=== PATIENT | male | born 1955 | race Caucasian/White ===

== ENCOUNTER 2022-04-24 19:50 | Emergency (ER) | payer MEDICARE | END 2022-04-24 21:28 | disposition home or self-care (01) | LOC: ERS 19:50 | DX: I87.8 Other specified disorders of veins (principal); I10 Essential (primary) hypertension; F17.210 Nicotine dependence, cigarettes, uncomplicated | CPT/HCPCS: 99283 ==

== ENCOUNTER 2022-05-28 16:21 | Inpatient (IN) | payer MEDICARE, SELFPAY ==
[2022-05-28 16:59] LABS: #Eosinphils 0.3 thou/uL (0.0-0.7); #Lymphocytes 1.5 thou/uL (1.20-3.40); #Monocytes 0.4 thou/uL (0.11-0.59); #Neutrophils 7.3 thou/uL (1.40-6.50); %Basophils 0.3 % (0.0-1.0); %Eosinophils 2.7 % (0.0-10.0); %Lymphocytes 15.4 % (21.0-51.0); %Monocytes 4.6 % (0.0-10.0); %Neutrophils 77.1 % (42.0-75.0); Hemoglobin 12.8 g/dL (14.0-18.0); Mean Corpuscular HGB CONC 32.5 g/dL (32.0-36.0); Mean Corpuscular Volume 95.4 fL (78.0-98.0); Mean Platelet Volume 7.4 fL (7.4-10.4); Platelet Count 239 thou/uL (130-400); RBC Distribution Width 13.3 % (11.5-14.5); Red Blood Cell (RBC) Count 4.12 mill/uL (4.70-6.10); White Blood Cell (WBC) Count 9.4 thou/uL (4.8-10.8)
[2022-05-28] MEDS ORDERED: hydrALAZINE 20 MG/ML VIAL ONE ×2 (17:01→17:50)
[2022-05-28 17:21] LABS: ALT (SGPT) Less than 7 U/L (8-55); AST (SGOT) 10 U/L (5-34); Albumin 3.9 g/dL (3.4-4.8); Alkaline Phosphatase 118 U/L (40-110); Anion Gap 14 mmol/L (10-20); BUN (Urea Nitrogen) 21 mg/dL (8.4-25.7); Bilirubin, Total 0.3 mg/dL (0.2-1.2); Calc. Creatinine Clearance 0 mL/min (70-130); Calcium 8.9 mg/dL (7.8-10.44); Carbon Dioxide 27 mmol/L (23-31); Chloride 104 mmol/L (98-107); Estimated GFR 95; Globulin 2.9 g/dL (2.4-3.5); Glucose 88 mg/dL (80-115); Potassium 3.9 mmol/L (3.5-5.1); Protein, Total 6.8 g/dL (5.8-8.1); Sodium 141 mmol/L (136-145)
[2022-05-28] MEDS ORDERED: Nitroglycerin 2% Ointment 1 INCH/1 GM Packet ONE (17:50)
[2022-05-28] MEDS ORDERED: Enalaprilat Dihydrate 1.25 MG/ML VIAL SLOW IVP SCH ×2 (18:15→18:45)
[2022-05-28] MEDS ORDERED: Carvedilol 25 MG TAB PO SCH ×2 (18:15→18:45)
[2022-05-28] MEDS ORDERED: Ondansetron ODT 4 MG TAB PO PRN (18:16)
[2022-05-28] MEDS ORDERED: hydrALAZINE 20 MG/ML VIAL SLOW IVP PRN (18:21)
[2022-05-28] MEDS ORDERED: Nicotine 14 MG PATCH TD SCH (18:30)
[2022-05-28] MEDS ORDERED: Clindamycin 150 MG CAP PO SCH (19:00)
[2022-05-28] MEDS ORDERED: niCARdipine 25 MG in Sodium Chloride 0.9% 250 ML 250 ML IVPB SCH (19:30)
[2022-05-28] MEDS ORDERED: Morphine 4 MG/ML VIAL ONE (20:15)
[2022-05-28 21:23] VITALS: BMI 22.6
[2022-05-28] MEDS: Famotidine 20 MG TAB PO SCH (21:41)
[2022-05-29] MEDS: Acetaminophen 325 MG TAB PO PRN ×3 (02:13→21:16)
[2022-05-29 04:04] LABS: #Eosinphils 0.2 thou/uL (0.0-0.7); #Lymphocytes 1.3 thou/uL (1.20-3.40); #Monocytes 0.6 thou/uL (0.11-0.59); #Neutrophils 10.4 thou/uL (1.40-6.50); %Basophils 0.1 % (0.0-1.0); %Lymphocytes 10.4 % (21.0-51.0); %Neutrophils 82.5 % (42.0-75.0); Hemoglobin 13.4 g/dL (14.0-18.0); Mean Corpuscular HGB CONC 33.1 g/dL (32.0-36.0); Mean Corpuscular Hemoglobin 31.6 pg (27.0-31.0); Mean Corpuscular Volume 95.4 fL (78.0-98.0); Mean Platelet Volume 8.1 fL (7.4-10.4); Platelet Count 253 thou/uL (130-400); RBC Distribution Width 13.4 % (11.5-14.5); Red Blood Cell (RBC) Count 4.23 mill/uL (4.70-6.10); White Blood Cell (WBC) Count 12.6 thou/uL (4.8-10.8)
[2022-05-29 04:21] LABS: Anion Gap 17 mmol/L (10-20); BUN (Urea Nitrogen) 19 mg/dL (8.4-25.7); Calc. Creatinine Clearance 100 mL/min (70-130); Calcium 9.1 mg/dL (7.8-10.44); Carbon Dioxide 24 mmol/L (23-31); Chloride 104 mmol/L (98-107); Estimated GFR 95; Glucose 92 mg/dL (80-115); Potassium 3.9 mmol/L (3.5-5.1); Sodium 141 mmol/L (136-145)
[2022-05-29] MEDS ORDERED: Clindamycin 150 MG CAP PO SCH (06:00)
[2022-05-29] MEDS: Famotidine 20 MG TAB PO SCH ×2 (08:21→21:16)
[2022-05-29] MEDS ORDERED: cloNIDine 0.1 MG TAB PO PRN (08:56)
[2022-05-29] MEDS ORDERED: Nicotine 14 MG PATCH TD PRN ×2 (08:57→08:59)
[2022-05-29] MEDS ORDERED: Carvedilol 6.25 MG TAB PO SCH (09:00)
[2022-05-29] MEDS ORDERED: NIFEdipine XL 30 MG TAB PO SCH (09:00)
[2022-05-29] MEDS: cefTRIAXone\\ROCEPHIN 2 GM in Sodium Chloride 0.9% 100 ML IVPB SCH (09:44)
[2022-05-29] MEDS: Saccharomyces boulardii 250 MG CAP PO SCH (09:44)
[2022-05-29 10:30] LABS: Amphetamine Not Detected (NotDetected); Barbiturates Screen Not Detected (NotDetected); Benzodiazepine Screen Not Detected (NotDetected); Cocaine Metabolite Screen Not Detected (NotDetected); Methadone Not Detected (NotDetected); Methamphetamine Not Detected (NotDetected); Opiate Screen Detected (NotDetected); Oxycodone Screen Not Detected (NotDetected); Phencyclidine (PCP) Not Detected (NotDetected); THC/Cannabinoid Screen Detected (NotDetected); Tricyclic Screen Not Detected (NotDetected)
[2022-05-29] MEDS ORDERED: Pregabalin 75 MG CAP PO SCH (12:30)
[2022-05-29] MEDS ORDERED: Doxycycline 100 MG CAP PO SCH (14:30)
[2022-05-29] MEDS: Carvedilol 6.25 MG TAB PO SCH (16:21)
[2022-05-29] MEDS: Pregabalin 75 MG CAP PO SCH (21:16)
[2022-05-29] MEDS: Doxycycline 100 MG CAP PO SCH (21:16)
[2022-05-29] MEDS: Heparin 5,000 UNITS/ML VIAL SC SCH (21:17)
[2022-05-30 05:54] LABS: #Eosinphils 0.2 thou/uL (0.0-0.7); #Lymphocytes 1.3 thou/uL (1.20-3.40); #Monocytes 0.7 thou/uL (0.11-0.59); #Neutrophils 7.9 thou/uL (1.40-6.50); %Basophils 0.3 % (0.0-1.0); %Eosinophils 1.8 % (0.0-10.0); %Lymphocytes 13.2 % (21.0-51.0); %Monocytes 6.8 % (0.0-10.0); Hemoglobin 13.9 g/dL (14.0-18.0); Mean Corpuscular HGB CONC 32.3 g/dL (32.0-36.0); Mean Corpuscular Volume 96.1 fL (78.0-98.0); Mean Platelet Volume 8.1 fL (7.4-10.4); Platelet Count 260 thou/uL (130-400); RBC Distribution Width 13.1 % (11.5-14.5); Red Blood Cell (RBC) Count 4.49 mill/uL (4.70-6.10); White Blood Cell (WBC) Count 10.1 thou/uL (4.8-10.8)
[2022-05-30 06:04] LABS: Anion Gap 14 mmol/L (10-20); BUN (Urea Nitrogen) 20 mg/dL (8.4-25.7); Calc. Creatinine Clearance 112 mL/min (70-130); Calcium 9.6 mg/dL (7.8-10.44); Carbon Dioxide 24 mmol/L (23-31); Chloride 106 mmol/L (98-107); Estimated GFR 98; Glucose 96 mg/dL (80-115); Potassium 3.8 mmol/L (3.5-5.1); Sodium 140 mmol/L (136-145)
[2022-05-30] MEDS ORDERED: hydrALAZINE 20 MG/ML VIAL SLOW IVP PRN (08:07)
[2022-05-30] MEDS: Famotidine 20 MG TAB PO SCH ×2 (08:12→21:55)
[2022-05-30] MEDS: Saccharomyces boulardii 250 MG CAP PO SCH (08:12)
[2022-05-30] MEDS: Heparin 5,000 UNITS/ML VIAL SC SCH ×2 (08:12→21:55)
[2022-05-30] MEDS: cefTRIAXone\\ROCEPHIN 2 GM in Sodium Chloride 0.9% 100 ML IVPB SCH (08:12)
[2022-05-30] MEDS: Doxycycline 100 MG CAP PO SCH ×2 (08:12→21:54)
[2022-05-30] MEDS: Pregabalin 75 MG CAP PO SCH ×2 (08:13→21:54)
[2022-05-30] MEDS ORDERED: Carvedilol 25 MG TAB PO SCH (08:15)
[2022-05-30] MEDS: NIFEdipine XL 60 MG TAB PO SCH (08:22)
[2022-05-30] MEDS: Carvedilol 6.25 MG TAB PO SCH (08:23)
[2022-05-30] MEDS: cloNIDine 0.1 MG TAB PO PRN (10:13)
[2022-05-30] MEDS: Carvedilol 25 MG TAB PO SCH (17:40)
[2022-05-30] MEDS: Acetaminophen 325 MG TAB PO PRN (22:07)
[2022-05-31 06:38] LABS: #Basophils 0.1 thou/uL (0.0-0.2); #Eosinphils 0.1 thou/uL (0.0-0.7); #Lymphocytes 1.5 thou/uL (1.20-3.40); #Monocytes 0.6 thou/uL (0.11-0.59); #Neutrophils 7.6 thou/uL (1.40-6.50); %Basophils 0.6 % (0.0-1.0); %Eosinophils 1.5 % (0.0-10.0); %Lymphocytes 15.3 % (21.0-51.0); %Monocytes 5.9 % (0.0-10.0); %Neutrophils 76.6 % (42.0-75.0); Hemoglobin 13.5 g/dL (14.0-18.0); Mean Corpuscular HGB CONC 33.1 g/dL (32.0-36.0); Mean Corpuscular Hemoglobin 31.7 pg (27.0-31.0); Mean Corpuscular Volume 95.8 fL (78.0-98.0); Mean Platelet Volume 8.4 fL (7.4-10.4); Platelet Count 240 thou/uL (130-400); RBC Distribution Width 13.3 % (11.5-14.5); Red Blood Cell (RBC) Count 4.25 mill/uL (4.70-6.10); White Blood Cell (WBC) Count 9.9 thou/uL (4.8-10.8)
[2022-05-31] MEDS: cloNIDine 0.1 MG TAB PO PRN (06:50)
[2022-05-31 07:01] LABS: Anion Gap 14 mmol/L (10-20); BUN (Urea Nitrogen) 20 mg/dL (8.4-25.7); Calc. Creatinine Clearance 113 mL/min (70-130); Calcium 9.6 mg/dL (7.8-10.44); Carbon Dioxide 23 mmol/L (23-31); Chloride 105 mmol/L (98-107); Estimated GFR 99; Glucose 107 mg/dL (80-115); Potassium 3.4 mmol/L (3.5-5.1); Sodium 139 mmol/L (136-145)
[2022-05-31] MEDS ORDERED: Potassium Chloride 20 MEQ TAB PO SCH ×2 (08:15→16:15)
[2022-05-31] MEDS: NIFEdipine XL 60 MG TAB PO SCH (08:23)
[2022-05-31] MEDS: Saccharomyces boulardii 250 MG CAP PO SCH (08:24)
[2022-05-31] MEDS: Pregabalin 75 MG CAP PO SCH ×2 (08:24→20:29)
[2022-05-31] MEDS: Doxycycline 100 MG CAP PO SCH ×2 (08:24→20:29)
[2022-05-31] MEDS: cefTRIAXone\\ROCEPHIN 2 GM in Sodium Chloride 0.9% 100 ML IVPB SCH (08:25)
[2022-05-31] MEDS: Famotidine 20 MG TAB PO SCH ×2 (08:25→20:29)
[2022-05-31] MEDS: Carvedilol 25 MG TAB PO SCH ×2 (08:25→16:19)
[2022-05-31] MEDS: Heparin 5,000 UNITS/ML VIAL SC SCH ×2 (08:25→20:30)
[2022-05-31] MEDS: Acetaminophen 325 MG TAB PO PRN ×2 (13:32→16:32)
[2022-05-31] MEDS ORDERED: Iopamidol-370 76% 500 ML 1 ML ONE (14:13)
[2022-05-31] MEDS ORDERED: Electrolyte Replacement Protocol 1 EACH FS SCH (16:00)
[2022-05-31] MEDS ORDERED: Aspirin 325 mg Enteric Coated Tablet PO SCH (16:00)
[2022-05-31] MEDS ORDERED: Electrolyte Replacement Protocol FS PRN (16:15)
[2022-05-31] MEDS: hydrALAZINE 25 MG TAB PO SCH ×2 (16:20→20:30)
[2022-06-01] MEDS: cloNIDine 0.1 MG TAB PO PRN (06:10)
[2022-06-01 06:44] LABS: #Basophils 0.1 thou/uL (0.0-0.2); #Eosinphils 0.2 thou/uL (0.0-0.7); #Lymphocytes 1.8 thou/uL (1.20-3.40); #Monocytes 0.6 thou/uL (0.11-0.59); #Neutrophils 7.3 thou/uL (1.40-6.50); %Basophils 0.5 % (0.0-1.0); %Eosinophils 1.7 % (0.0-10.0); %Lymphocytes 18.2 % (21.0-51.0); %Monocytes 5.8 % (0.0-10.0); %Neutrophils 73.8 % (42.0-75.0); Hemoglobin 13.4 g/dL (14.0-18.0); Mean Corpuscular HGB CONC 32.9 g/dL (32.0-36.0); Mean Corpuscular Hemoglobin 31.6 pg (27.0-31.0); Mean Corpuscular Volume 96.1 fL (78.0-98.0); Mean Platelet Volume 8.5 fL (7.4-10.4); Platelet Count 242 thou/uL (130-400); RBC Distribution Width 13.3 % (11.5-14.5); Red Blood Cell (RBC) Count 4.25 mill/uL (4.70-6.10); White Blood Cell (WBC) Count 9.9 thou/uL (4.8-10.8)
[2022-06-01 07:06] LABS: Anion Gap 17 mmol/L (10-20); BUN (Urea Nitrogen) 23 mg/dL (8.4-25.7); Calc. Creatinine Clearance 102 mL/min (70-130); Calcium 9.4 mg/dL (7.8-10.44); Carbon Dioxide 20 mmol/L (23-31); Chloride 106 mmol/L (98-107); Estimated GFR 96; Glucose 101 mg/dL (80-115); Magnesium 1.8 mg/dL (1.6-2.6); Potassium 4.2 mmol/L (3.5-5.1); Sodium 139 mmol/L (136-145)
[2022-06-01] MEDS ORDERED: Magnesium 2 GM/50 ML(in water) 2 GM in Premix Bag 1 BAG IVPB SCH (07:30)
[2022-06-01] MEDS: cefTRIAXone\\ROCEPHIN 2 GM in Sodium Chloride 0.9% 100 ML IVPB SCH (08:23)
[2022-06-01] MEDS: hydrALAZINE 25 MG TAB PO SCH ×2 (08:23→14:00)
[2022-06-01] MEDS: NIFEdipine XL 60 MG TAB PO SCH (08:24)
[2022-06-01] MEDS: Aspirin 325 mg Enteric Coated Tablet PO SCH (08:24)
[2022-06-01] MEDS: Acetaminophen 325 MG TAB PO PRN ×2 (08:24→20:10)
[2022-06-01] MEDS: Pregabalin 75 MG CAP PO SCH ×2 (08:25→20:07)
[2022-06-01] MEDS: Famotidine 20 MG TAB PO SCH ×2 (08:25→20:07)
[2022-06-01] MEDS: Saccharomyces boulardii 250 MG CAP PO SCH (08:25)
[2022-06-01] MEDS: Carvedilol 25 MG TAB PO SCH ×2 (08:25→16:35)
[2022-06-01] MEDS: Heparin 5,000 UNITS/ML VIAL SC SCH ×2 (08:26→20:13)
[2022-06-01] MEDS: Doxycycline 100 MG CAP PO SCH ×2 (08:39→20:07)
[2022-06-01] MEDS ORDERED: NIFEdipine XL 90 MG TAB PO SCH (09:00)
[2022-06-01] MEDS ORDERED: hydrALAZINE 25 MG TAB PO SCH (21:00)
[2022-06-02] MEDS: cloNIDine 0.1 MG TAB PO PRN (05:10)
[2022-06-02] MEDS: Doxycycline 100 MG CAP PO SCH (08:06)
[2022-06-02] MEDS: cefTRIAXone\\ROCEPHIN 2 GM in Sodium Chloride 0.9% 100 ML IVPB SCH (08:06)
[2022-06-02] MEDS: Heparin 5,000 UNITS/ML VIAL SC SCH (08:06)
[2022-06-02] MEDS: Famotidine 20 MG TAB PO SCH (08:06)
[2022-06-02] MEDS: Aspirin 325 mg Enteric Coated Tablet PO SCH (08:06)
[2022-06-02] MEDS: Saccharomyces boulardii 250 MG CAP PO SCH (08:06)
[2022-06-02] MEDS: Carvedilol 25 MG TAB PO SCH (08:07)
[2022-06-02] MEDS: Pregabalin 75 MG CAP PO SCH (08:07)
[2022-06-02 08:24] VITALS: BP 158/98; TEMP 97.7
[2022-06-02] MEDS ORDERED: NIFEdipine XL 60 MG TAB PO SCH (09:00)
[2022-06-02] MEDS: Acetaminophen 325 MG TAB PO PRN (14:43)
== END 2022-06-02 16:13 | disposition home health service (06) | DRG 603 ==
LOC: ERS 16:21 → CCU 20:26 → T4-A 05-29 12:23
PROVIDERS: ADMIT Internal Medicine; ATTEND Internal Medicine
DX: L03.115 Cellulitis of right lower limb (principal); I16.1 Hypertensive emergency; I16.0 Hypertensive urgency; Z20.822 Contact with and (suspected) exposure to COVID-19; L03.116 Cellulitis of left lower limb; F17.210 Nicotine dependence, cigarettes, uncomplicated; F12.20 Cannabis dependence, uncomplicated; H54.40 Blindness, one eye, unspecified eye; I73.9 Peripheral vascular disease, unspecified; D53.9 Nutritional anemia, unspecified; J44.9 Chronic obstructive pulmonary disease, unspecified; E87.6 Hypokalemia; E83.42 Hypomagnesemia; Z91.14 Patient's other noncompliance with medication regimen; Z91.19 Patient's noncompliance with other medical treatment and regimen
CPT/HCPCS: 36415; 36416; 71045; 75635; 80048; 80053; 80306; 83735; 83880; 84484; 84550; 85025; 87040; 93005; 93923; 96374; 96375; 96376; 97139; J0360; J0696; J1644; J2270; J3475; J3490; J7050; Q9967; U0003; U0005

== ENCOUNTER 2022-07-04 00:56 | Emergency (ER) | payer MEDICARE ==
[2022-07-04] MEDS ORDERED: HYDROcodone/Acetaminophen 5/325 mg Tablet ONE (03:17)
== END 2022-07-04 06:22 ==
LOC: ERS 01:03
DX: S82.145A Nondisplaced bicondylar fracture of left tibia, initial encounter for closed fracture (principal); I10 Essential (primary) hypertension; F17.210 Nicotine dependence, cigarettes, uncomplicated; W18.39XA Other fall on same level, initial encounter
CPT/HCPCS: 72170

== ENCOUNTER 2022-10-09 06:17 | Emergency (ER) | payer MEDICARE ==
[2022-10-09] MEDS ORDERED: Mag-Al 1200 mg/1200 mg/30 ML UDCUP ONE (06:31)
[2022-10-09] MEDS ORDERED: Ondansetron PF 4 MG/2 ML Vial ONE (06:31)
[2022-10-09] MEDS ORDERED: Lidocaine Viscous Sol 2% 15 ml UD Cup ONE (06:32)
[2022-10-09 06:45] LABS: #Basophils 0.1 thou/uL (0.0-0.2); #Eosinphils 0.2 thou/uL (0.0-0.7)
[2022-10-09 06:52] LABS: #Lymphocytes 2.1 thou/uL (1.20-3.40); #Monocytes 0.4 thou/uL (0.11-0.59); #Neutrophils 5.9 thou/uL (1.40-6.50); %Lymphocytes 24.4 % (21.0-51.0); %Neutrophils 67.7 % (42.0-75.0); Hemoglobin 11.2 g/dL (14.0-18.0); Mean Corpuscular HGB CONC 33.2 g/dL (32.0-36.0); Mean Corpuscular Hemoglobin 31.6 pg (27.0-31.0); Mean Corpuscular Volume 95.3 fl (78.0-98.0); Mean Platelet Volume 8.1 fL (7.4-10.4); Platelet Count 351 10x3/uL (130-400); RBC Distribution Width 15.3 % (11.5-14.5); Red Blood Cell (RBC) Count 3.53 mill/uL (4.70-6.10); White Blood Cell (WBC) Count 8.6 10x3/uL (4.8-10.8)
[2022-10-09 07:06] LABS: ALT (SGPT) 8 U/L (8-55); AST (SGOT) 14 U/L (5-34); Alkaline Phosphatase 103 U/L (40-110); Anion Gap 14 mmol/L (10-20); BUN (Urea Nitrogen) 21 mg/dL (8.4-25.7); Bilirubin, Total 0.4 mg/dL (0.2-1.2); Calc. Creatinine Clearance 0 mL/min (70-130); Calcium 9.6 mg/dL (7.8-10.44); Carbon Dioxide 20 mmol/L (23-31); Chloride 111 mmol/L (98-107); Estimated GFR 86; Globulin 2.8 g/dL (2.4-3.5); Glucose 90 mg/dL (80-115); Lipase 12 U/L (8-78); Potassium 3.2 mmol/L (3.5-5.1); Protein, Total 6.8 g/dL (5.8-8.1); Sodium 142 mmol/L (136-145)
[2022-10-09] MEDS ORDERED: HYDROcodone/Acetaminophen 10/325 mg Tablet ONE (09:27)
[2022-10-09 10:01] LABS: Bilirubin Negative (Negative); Blood, Urine Negative (Negative); Clarity Clear (Clear); Glucose, Urine (Dipstick) Normal (Negative); Ketone, Urine Negative (Negative); Leukocyte Negative Leu/uL (Negative); Nitrite Negative (Negative); Protein, Urine (Dipstick) 20 mg/dL (Neg-Trace); Specific Gravity, Urine 1.035 (1.002-1.036); Urobilinogen Normal mg/dL (Less than 2)
[2022-10-09] MEDS ORDERED: Iopamidol-370 76% 500 ML 1 ML ONE (10:19)
== END 2022-10-09 10:06 | disposition home or self-care (01) ==
LOC: ERS 06:17
DX: R11.0 Nausea (principal); R19.7 Diarrhea, unspecified; I10 Essential (primary) hypertension; F17.210 Nicotine dependence, cigarettes, uncomplicated
CPT/HCPCS: 74177; 80053; 81003; 83690; 85025; 87086; 93005; 96361; 96374; J2405

== ENCOUNTER 2022-10-13 14:38 | Emergency (ER) | payer MEDICARE ==
[~2022-10-13 14:38] MED LIST: Iopamidol-370 76% 500 ML 1 ML ONE
[2022-10-13] MEDS ORDERED: Ondansetron PF 4 MG/2 ML Vial ONE (15:40)
[2022-10-13 16:07] LABS: Bilirubin Negative (Negative); Blood, Urine Negative (Negative); Glucose, Urine (Dipstick) Negative (Negative); Ketone, Urine Trace mg/dL (Negative); Leukocyte Negative (Negative); Nitrite Negative (Negative); Protein, Urine (Dipstick) Trace mg/dL (Neg-Trace); Urobilinogen 0.2 mg/dL (Less than 2)
[2022-10-13 16:16] LABS: #Eosinphils 0.2 thou/uL (0.0-0.7); #Lymphocytes 1.7 thou/uL (1.20-3.40); #Monocytes 0.4 thou/uL (0.11-0.59); #Neutrophils 5.4 thou/uL (1.40-6.50); %Basophils 0.6 % (0.0-1.0); %Eosinophils 2.5 % (0.0-10.0); %Monocytes 4.9 % (0.0-10.0); Hemoglobin 11.6 g/dL (14.0-18.0); Mean Corpuscular HGB CONC 33.5 g/dL (32.0-36.0); Mean Corpuscular Hemoglobin 32.2 pg (27.0-31.0); Mean Corpuscular Volume 95.9 fl (78.0-98.0); Mean Platelet Volume 8.9 fL (7.4-10.4); Platelet Count 315 10x3/uL (130-400); RBC Distribution Width 15.4 % (11.5-14.5); Red Blood Cell (RBC) Count 3.61 mill/uL (4.70-6.10); White Blood Cell (WBC) Count 7.7 10x3/uL (4.8-10.8)
[2022-10-13 16:24] LABS: Bacteria/HPF None Seen HPF (None Seen); RBC/HPF 0-3 HPF (0-3); Squamous Epithelial 0-3 HPF (0-3); WBC/HPF 0-3 HPF (0-3)
[2022-10-13 16:26] LABS: Clarity Clear (Clear); Specific Gravity, Urine 1.024 (1.002-1.036)
[2022-10-13 16:45] LABS: ALT (SGPT) Less than 7 U/L (8-55); AST (SGOT) 14 U/L (5-34); Albumin 3.9 g/dL (3.4-4.8); Alkaline Phosphatase 94 U/L (40-110); Anion Gap 13 mmol/L (10-20); BUN (Urea Nitrogen) 17 mg/dL (8.4-25.7); Bilirubin, Total 0.4 mg/dL (0.2-1.2); Calc. Creatinine Clearance 0 mL/min (70-130); Calcium 9.8 mg/dL (7.8-10.44); Carbon Dioxide 26 mmol/L (23-31); Chloride 106 mmol/L (98-107); Estimated GFR 82; Globulin 2.8 g/dL (2.4-3.5); Glucose 83 mg/dL (80-115); Lipase 14 U/L (8-78); Protein, Total 6.7 g/dL (5.8-8.1); Sodium 142 mmol/L (136-145)
[2022-10-13] MEDS ORDERED: Potassium Chloride 20 MEQ TAB ONE (18:40)
[2022-10-13] MEDS ORDERED: Acetaminophen 500 MG TAB ONE (22:24)
[2022-10-13] MEDS ORDERED: Lisinopril 10 MG TAB ONE (22:57)
[2022-10-13] MEDS ORDERED: Amlodipine 5 MG TAB ONE (22:57)
== END 2022-10-14 01:53 ==
LOC: ERS 14:38
DX: R11.2 Nausea with vomiting, unspecified (principal); R53.1 Weakness; I10 Essential (primary) hypertension; F17.210 Nicotine dependence, cigarettes, uncomplicated; Z79.899 Other long term (current) drug therapy
CPT/HCPCS: 36415; 74177; 76705; 80053; 81003; 83690; 85025; 96374; J2405; Q9967

== ENCOUNTER 2023-03-18 13:09 | Emergency (ER) | payer MEDICARE, SELFPAY ==
[2023-03-18] MEDS ORDERED: Morphine 4 MG/ML VIAL ONE (13:53)
[2023-03-18 16:49] LABS: #Basophils 0.1 thou/uL (0.0-0.2); #Eosinphils 0.1 thou/uL (0.0-0.7); #Lymphocytes 1.2 thou/uL (1.20-3.40); #Monocytes 0.3 thou/uL (0.11-0.59); #Neutrophils 5.1 thou/uL (1.40-6.50); %Basophils 1.1 % (0.0-1.0); %Eosinophils 2.1 % (0.0-10.0); %Lymphocytes 17.3 % (21.0-51.0); %Monocytes 4.6 % (0.0-10.0); %Neutrophils 74.9 % (42.0-75.0); Hemoglobin 10.6 g/dL (14.0-18.0); Mean Corpuscular HGB CONC 33.7 g/dL (32.0-36.0); Mean Corpuscular Hemoglobin 32.1 pg (27.0-31.0); Mean Corpuscular Volume 95.2 fl (78.0-98.0); Mean Platelet Volume 8.3 fL (7.4-10.4); Platelet Count 245 10x3/uL (130-400); RBC Distribution Width 14.3 % (11.5-14.5); Red Blood Cell (RBC) Count 3.31 mill/uL (4.70-6.10); White Blood Cell (WBC) Count 6.7 10x3/uL (4.8-10.8)
[2023-03-18 17:07] LABS: ALT (SGPT) Less than 7 U/L (8-55); AST (SGOT) 10 U/L (5-34); Albumin 3.6 g/dL (3.4-4.8); Alkaline Phosphatase 86 U/L (40-110); Anion Gap 14 mmol/L (10-20); BUN (Urea Nitrogen) 21 mg/dL (8.4-25.7); Bilirubin, Total 0.4 mg/dL (0.2-1.2); Calc. Creatinine Clearance 0 mL/min (70-130); Calcium 9.1 mg/dL (7.8-10.44); Carbon Dioxide 24 mmol/L (23-31); Chloride 107 mmol/L (98-107); Estimated GFR 73; Globulin 2.5 g/dL (2.4-3.5); Glucose 77 mg/dL (80-115); Magnesium 1.9 mg/dL (1.6-2.6); Potassium 3.2 mmol/L (3.5-5.1); Protein, Total 6.1 g/dL (5.8-8.1); Sodium 142 mmol/L (136-145)
[2023-03-18] MEDS ORDERED: HYDROcodone/Acetaminophen 5/325 mg Tablet ONE (18:44)
[2023-03-18] MEDS ORDERED: hydrALAZINE 20 MG/ML VIAL ONE ×2 (19:39→20:36)
[2023-03-18 19:58] LABS: Bacteria/HPF None Seen HPF (None Seen); Bilirubin Negative (Negative); Blood, Urine Negative (Negative); Clarity Clear (Clear); Glucose, Urine (Dipstick) Normal (Negative); Ketone, Urine Negative (Negative); Leukocyte Negative Leu/uL (Negative); Mucous/LPF Rare LPF (<2+); Nitrite Negative (Negative); Protein, Urine (Dipstick) 30 mg/dL (Neg-Trace); RBC/HPF 0-3 HPF (0-3); Sperm/HPF Rare HPF (None Seen); Squamous Epithelial 0-3 HPF (0-3); Urobilinogen Normal mg/dL (Less than 2); WBC/HPF 0-3 HPF (0-3)
== END 2023-03-18 21:16 | disposition home or self-care (01) ==
LOC: ERS 13:09
DX: R53.1 Weakness (principal); I10 Essential (primary) hypertension; Z79.899 Other long term (current) drug therapy; Z79.82 Long term (current) use of aspirin
CPT/HCPCS: 74176; 80053; 83735; 85025; 93005; 96374; 96375; 96376; 99285; J0360; 81003; 81015; J2270

== ENCOUNTER 2023-09-25 18:14 | Emergency (ER) | payer MEDICARE ==
[2023-09-25 20:07] LABS: Bilirubin Negative (Negative); Blood, Urine 3+ (Negative); Clarity Turbid (Clear); Glucose, Urine (Dipstick) Normal (Negative); Ketone, Urine Negative (Negative); Leukocyte 500 Leu/uL (Negative); Nitrite 2+ (Negative); Protein, Urine (Dipstick) Negative (Neg-Trace); Specific Gravity, Urine 1.015 (1.002-1.036); Urobilinogen Normal mg/dL (Less than 2); pH, Urine 5.5 (5.0-9.0)
[2023-09-25 20:18] LABS: CAUTI Indications for Culture Acute Hematuria; RBC/HPF 21-50 HPF (0-3); Squamous Epithelial None Seen HPF (0-3); WBC/HPF 21-50 HPF (0-3)
[2023-09-25 20:19] LABS: Bacteria/HPF 3+ HPF (None Seen)
[2023-09-25 20:20] LABS: Urine Culture Reflex Yes Yes
[2023-09-25 20:38] LABS: #Eosinphils 0.3 thou/uL (0.0-0.7); #Monocytes 0.3 thou/uL (0.11-0.59); #Neutrophils 5.3 thou/uL (1.40-6.50); %Basophils 0.6 % (0.0-1.0); %Eosinophils 3.9 % (0.0-10.0); %Lymphocytes 17.4 % (21.0-51.0); %Monocytes 3.9 % (0.0-10.0); %Neutrophils 73.8 % (42.0-75.0); Hematocrit 28.5 % (42.0-52.0); Hemoglobin 8.9 g/dL (14.0-18.0); Mean Corpuscular HGB CONC 31.2 g/dL (32.0-36.0); Mean Corpuscular Hemoglobin 26.4 pg (27.0-31.0); Mean Corpuscular Volume 84.6 fl (78.0-98.0); Mean Platelet Volume 9.2 fL (7.4-10.4); Platelet Count 469 10x3/uL (130-400); RBC Distribution Width 17.2 % (11.5-14.5); Red Blood Cell (RBC) Count 3.37 mill/uL (4.70-6.10); White Blood Cell (WBC) Count 7.2 10x3/uL (4.8-10.8)
[2023-09-25 21:02] LABS: ALT (SGPT) 9 U/L (8-55); AST (SGOT) 14 U/L (5-34); Albumin 3.6 g/dL (3.4-4.8); Alkaline Phosphatase 127 U/L (40-110); Anion Gap 14 mmol/L (10-20); BUN (Urea Nitrogen) 36 mg/dL (8.4-25.7); Bilirubin, Total Less than 0.2 mg/dL (0.2-1.2); Calc. Creatinine Clearance 0 mL/min (70-130); Carbon Dioxide 27 mmol/L (23-31); Chloride 103 mmol/L (98-107); Estimated GFR 47; Globulin 3.4 g/dL (2.4-3.5); Glucose 98 mg/dL (80-115); Lipase 15 U/L (8-78); Potassium 4.5 mmol/L (3.5-5.1); Sodium 139 mmol/L (136-145)
[2023-09-25] MEDS ORDERED: Acetaminophen 650 MG/20.3 ML UDCUP ONE (23:24)
== END 2023-09-26 01:15 | disposition home or self-care (01) ==
LOC: MERGE 18:14 → ERS 18:14
DX: N39.0 Urinary tract infection, site not specified (principal); I10 Essential (primary) hypertension; F17.210 Nicotine dependence, cigarettes, uncomplicated; Z79.899 Other long term (current) drug therapy
CPT/HCPCS: 36415; 80053; 81001; 83690; 85025; 87077; 87086; 87186; 99284